=== PATIENT | female | born 1980 | race Caucasian/White ===

== ENCOUNTER 2016-06-30 08:43 | Observation (INO) | payer OTHER ==
[~2016-06-30] VITALS: Ht 167.6 cm; Wt 70.8 kg
[2016-06-30] VITALS (8 sets, daily range): BP systolic 99–125; BP diastolic 58–79
[2016-06-30] MEDS ORDERED: FENTANYL PF 100 MCG/2 ML VIAL. ONE ×2 (08:57→11:21)
[2016-06-30] MEDS ORDERED: ONDANSETRON PF 4 MG/2 ML VIAL. ONE (08:57)
[2016-06-30] MEDS ORDERED: GLYCOPYRROLATE 1 MG/5 ML VIAL. ONE (08:57)
[2016-06-30] MEDS ORDERED: MIDAZOLAM HCL 2 MG/2 ML VIAL. ONE (08:57)
[2016-06-30] MEDS ORDERED: NEOSTIGMINE METHYLSULFATE 5 MG/5 ML SYRINGE. ONE (08:57)
[2016-06-30] MEDS ORDERED: PROPOFOL 20 ML IV ONE (08:57)
[2016-06-30] MEDS ORDERED: DEXAMETHASONE SOD PHOS 20 MG/5 ML VIAL. ONE (08:57)
[2016-06-30] MEDS ORDERED: SEVOFLURANE 61 TO 120 MINUTES. IH ONE (08:57)
[2016-06-30] MEDS ORDERED: KETOROLAC 30 MG/ML SYRINGE FOR OR. INJ ONE (08:58)
[2016-06-30] MEDS ORDERED: ROCURONIUM 50 MG/5 ML VIAL. ONE (08:58)
[2016-06-30] MEDS ORDERED: LIDOCAINE 2% 100 MG/5 ML DISP.SYRIN. ONE (08:58)
[2016-06-30] MEDS ORDERED: DEXT20CA7 PO (09:27)
[2016-06-30] MEDS: IV RINGERS,LACTATED 1000ML 1,000 ML IV SCH ×2 (09:30→12:00)
[2016-06-30] MEDS ORDERED: CEFAZOLIN 1GM IVPB FOR OMNI 50 ML IV ONE (09:33)
[2016-06-30 09:56] LABS: NEG OBC UR NEG; POS OBC UR POS
[2016-06-30 10:01] LABS: BASO # 0.1 x10^3/uL (0.0-0.2); BASO % 1 % (0-3); EOS % 4 % (0-3); HEMATOCRIT 38.6 % (36.0-47.0); LYMPH # 3.2 x10^3/uL (1.0-4.8); LYMPH % 36 % (24-48); MEAN CORPUSCULAR HEMOGLOBIN 32 pg (25-35); MEAN CORPUSCULAR HGB CONC 34 g/dL (31-37); MEAN CORPUSCULAR VOLUME 96 fL (79-100); MONO % 7 % (0-9); NEUT % 53 % (31-73); PLATELET COUNT 360 x10^3/uL (140-400); RED BLOOD COUNT 4.02 x10^6/uL (3.50-5.40); RED CELL DISTRIBUTION WIDTH 12.7 % (11.5-14.5)
[2016-06-30] MEDS ORDERED: METHYLENE BLUE 1% 1 ML VIAL. ONE (10:08)
[2016-06-30] MEDS ORDERED: LIDOCAINE 1%/EPI 1:100,000 20 ML VIAL. ONE (10:08)
[2016-06-30] MEDS ORDERED: ACETAMINOPHEN INTRAVENOUS 100 ML IV ONE (11:09)
--- NOTE | 2016-06-30 11:12 | PDOC ---
BRIEF OPERATIVE NOTE Pre-Op Diagnosis CIS Post-Op Diagnosis Same Procedure Performed [facility] Surgeon Dr. Aparicio Anesthesia Type: General Blood Loss 25 ml Specimens Obtained uterus and cervix Findings enlarged uterus, CIS on cervix, nml fallopian tubes and ovaries natacha. Complications none Additional Remarks ptLARISSA Schwartz Jr, MD Jun 30, 2016 11:11
[2016-06-30] MEDS ORDERED: DIPHENHYDRAMINE 50 MG/ML VIAL IV PRN (11:15)
[2016-06-30] MEDS ORDERED: KETOROLAC TROMETHAMINE 30 MG/ML SYRINGE. IV PRN (11:15)
[2016-06-30] MEDS ORDERED: ONDANSETRON PF 4 MG/2 ML VIAL. IV PRN ×2 (11:15→11:30)
[2016-06-30] MEDS ORDERED: DIPHENHYDRAMINE HCL 25 MG CAPSULE PO PRN (11:15)
[2016-06-30] MEDS ORDERED: DEXTROSE 50% 25 GM / 50ML DISP.SYRIN. IV PRN (11:15)
[2016-06-30] MEDS ORDERED: CALCIUM CARBONATE 500 MG TAB.CHEW PO PRN (11:15)
[2016-06-30] MEDS ORDERED: ZOLPIDEM 5 MG TABLET. PO PRN (11:15)
[2016-06-30] MEDS ORDERED: PROCHLORPERAZINE 10 MG/2 ML VIAL. IV PRN (11:15)
[2016-06-30] MEDS ORDERED: 0.9 % SODIUM CHLORIDE 10 ML DISP.SYRIN. IV PRN (11:15)
[2016-06-30] MEDS ORDERED: IV RINGERS,LACTATED 1000ML 1,000 ML IV SCH (11:25)
[2016-06-30] MEDS ORDERED: LIDOCAINE 1% 1 ML SYRINGE. ID PRN (11:30)
[2016-06-30] MEDS ORDERED: MORPHINE SULFATE 2 MG/ML DISP.SYRIN. IV PRN (11:30)
[2016-06-30] MEDS ORDERED: FENTANYL PF 100 MCG/2 ML VIAL. IV PRN (11:30)
[2016-06-30] MEDS: PROCHLORPERAZINE 10 MG/2 ML VIAL. IV PRN ×2 (11:31→11:57)
[2016-06-30] MEDS: FENTANYL PF 100 MCG/2 ML VIAL. IV PRN ×2 (11:31→11:48)
[2016-06-30] MEDS: HYDROMORPHONE 2 MG/ML VIAL. IV PRN ×2 (11:58→12:18)
[2016-06-30] MEDS: NICOTINE 14MG PATCH. TD PRN (15:05)
[2016-06-30] MEDS: SIMETHICONE 80 MG TAB.CHEW PO PRN (15:23)
[2016-06-30] MEDS: OXYCODONE/APAP 5/325 TABLET. PO PRN ×2 (15:24→21:33)
--- NOTE | 2016-06-30 17:10 | OP ---
DATE OF SURGERY: PREOPERATIVE DIAGNOSIS: Carcinoma in situ. POSTOPERATIVE DIAGNOSES: Carcinoma in situ. PROCEDURE: Transvaginal hysterectomy. SURGEON: Larissa Aparicio MD. ANESTHESIA: GETA. ESTIMATED BLOOD LOSS: 25 mL. COMPLICATIONS: None. FINDINGS: Enlarged uterus, carcinoma in situ of cervix. Normal fallopian tubes and ovaries bilaterally. COMPLICATIONS: None. SUMMARY: A 35-year-old with carcinoma in situ, counseled on definitive treatment in terms of vaginal hysterectomy. The patient was counseled on the risks, benefits and expectations of TVH and voiced a clear understanding to proceed. DESCRIPTION OF PROCEDURE: The patient was taken to surgery suite and placed in dorsal lithotomy position, was prepped with Betadine solution and draped in a sterile fashion. After adequate anesthesia, a weighted speculum and curved Roman were placed vaginally. Elias clamps were placed on the anterior and posterior lip of the cervix. Cervix was injected with 1% lidocaine in circumferential manner. Bovie cautery was utilized to circumscribe the cervix. The vaginal mucosa was then dissected away from the lower uterine segment using a moist Ray-Vipul. The parametrial tissue was clamped bilaterally with curved Zackary clamps, cut and suture ligated with 2-0 Vicryl suture. Posterior cul-de-sac was entered bluntly. The long weighted speculum was then placed. Uterosacral ligaments and cardinal ligaments were clamped bilaterally, cut and suture ligated. The uterus was then retroverted. The uteroovarian pedicles were clamped along with the round ligament, were clamped bilaterally, cut and suture ligated. The uterus and cervix were then removed in their entirety. A modified Doyle's culdoplasty was performed incorporating uterosacral ligaments bilaterally. The remainder of the vaginal cuff was reapproximated using 2-0 Vicryl suture in a [id number] manner. Moist vaginal packing was placed. The patient tolerated procedure well and was taken to recovery room in stable condition. Sponge and needle counts correct x 3. LARISSA APARICIO MD DR: GELA/corinne JOB#: [id number] / [id number]
[2016-06-30] MEDS: GABAPENTIN 300 MG CAPSULE. PO SCH (21:33)
[2016-07-01] MEDS ORDERED: PNEUMOCOCCAL VAX SCREEN BY RX. MC PRN (01:15)
[2016-07-01] MEDS: OXYCODONE/APAP 5/325 TABLET. PO PRN ×3 (03:05→12:45)
[2016-07-01 05:11] LABS: BASO % 0 % (0-3); EOS % 0 % (0-3); HEMATOCRIT 21.8 % (36.0-47.0); HEMOGLOBIN 7.3 g/dL (12.0-15.5); LYMPH # 1.8 x10^3/uL (1.0-4.8); LYMPH % 13 % (24-48); MEAN CORPUSCULAR HEMOGLOBIN 33 pg (25-35); MEAN CORPUSCULAR HGB CONC 34 g/dL (31-37); MEAN CORPUSCULAR VOLUME 97 fL (79-100); MONO % 6 % (0-9); NEUT % 81 % (31-73); PLATELET COUNT 258 x10^3/uL (140-400); RED BLOOD COUNT 2.24 x10^6/uL (3.50-5.40); RED CELL DISTRIBUTION WIDTH 12.3 % (11.5-14.5); WHITE BLOOD COUNT 13.5 x10^3/uL (4.0-11.0)
[2016-07-01 06:00] VITALS: BP 105/63
[2016-07-01] MEDS: SIMETHICONE 80 MG TAB.CHEW PO PRN (08:12)
[2016-07-01] MEDS: GABAPENTIN 300 MG CAPSULE. PO SCH ×2 (08:12→16:00)
[2016-07-01 08:15] VITALS: BP 131/71
[2016-07-01] MEDS ORDERED: PNEUMOC CONJ VACC 23-VALENT 0.5 ML VIAL. VAX IM ONE (09:00)
[2016-07-01] MEDS: NICOTINE 14MG PATCH. TD PRN (12:17)
--- NOTE | 2016-07-01 14:57 | PDOC ---
SURGICAL PROGRESS NOTE Subjective Pt. feeling well. Pain controlled. No complaints. Vital Signs Vital Signs Date Time Temp Pulse Resp B/P Pulse Ox O2 Delivery O2 Flow Rate FiO2 07/01/16 12:45 18 Room Air 07/01/16 08:15 97.9 97 131/71 98 97.9 06/30/16 11:31 10.0 I&O Intake and Output 07/01/16 07:00 Intake Total 1950 ml Output Total 675 ml Balance 1275 ml Intake Oral 800 ml IV Total 1150 ml Output Urine Total 650 ml Estimated Blood Loss 25 ml # Voids 1 PATIENT HAS A CHRISTIANSON: No General: Alert, Oriented X3, Cooperative HEENT: Atraumatic Lungs: Clear to auscultation Heart: Regular rate Abdomen: Normal bowel sounds, Soft, No tenderness Extremities: No clubbing Psych/Mental Status: Mental status NL Labs Laboratory Tests Test 06/30/16 08:50 06/30/16 09:15 07/01/16 04:30 Urine Test Negative (NEG) White Blood Count 9.0x10^3/uL (4.0-11.0) 13.5x10^3/uL (4.0-11.0) Red Blood Count 4.02x10^6/uL (3.50-5.40) 2.24x10^6/uL (3.50-5.40) Hemoglobin 13.0g/dL (12.0-15.5) 7.3g/dL (12.0-15.5) Hematocrit 38.6% (36.0-47.0) 21.8% (36.0-47.0) Mean Corpuscular Volume 96fL (79-100) 97fL (79-100) Mean Corpuscular Hemoglobin 32pg (25-35) 33pg (25-35) Mean Corpuscular Hemoglobin Concent 34g/dL (31-37) 34g/dL (31-37) Red Cell Distribution Width 12.7% (11.5-14.5) 12.3% (11.5-14.5) Platelet Count 360x10^3/uL (140-400) 258x10^3/uL (140-400) Neutrophils (%) (Auto) 53% (31-73) 81% (31-73) Lymphocytes (%) (Auto) 36% (24-48) 13% (24-48) Monocytes (%) (Auto) 7% (0-9) 6% (0-9) Eosinophils (%) (Auto) 4% (0-3) 0% (0-3) Basophils (%) (Auto) 1% (0-3) 0% (0-3) Neutrophils # (Auto) 4.7x10^3uL (1.8-7.7) 10.9x10^3uL (1.8-7.7) Lymphocytes # (Auto) 3.2x10^3/uL (1.0-4.8) 1.8x10^3/uL (1.0-4.8) Monocytes # (Auto) 0.6x10^3/uL (0.0-1.1) 0.8x10^3/uL (0.0-1.1) Eosinophils # (Auto) 0.3x10^3/uL (0.0-0.7) 0.0x10^3/uL (0.0-0.7) Basophils # (Auto) 0.1x10^3/uL (0.0-0.2) 0.0x10^3/uL (0.0-0.2) Laboratory Tests Test 07/01/16 04:30 White Blood Count 13.5x10^3/uL (4.0-11.0) Red Blood Count 2.24x10^6/uL (3.50-5.40) Hemoglobin 7.3g/dL (12.0-15.5) Hematocrit 21.8% (36.0-47.0) Mean Corpuscular Volume 97fL (79-100) Mean Corpuscular Hemoglobin 33pg (25-35) Mean Corpuscular Hemoglobin Concent 34g/dL (31-37) Red Cell Distribution Width 12.3% (11.5-14.5) Platelet Count 258x10^3/uL (140-400) Neutrophils (%) (Auto) 81% (31-73) Lymphocytes (%) (Auto) 13% (24-48) Monocytes (%) (Auto) 6% (0-9) Eosinophils (%) (Auto) 0% (0-3) Basophils (%) (Auto) 0% (0-3) Neutrophils # (Auto) 10.9x10^3uL (1.8-7.7) Lymphocytes # (Auto) 1.8x10^3/uL (1.0-4.8) Monocytes # (Auto) 0.8x10^3/uL (0.0-1.1) Eosinophils # (Auto) 0.0x10^3/uL (0.0-0.7) Basophils # (Auto) 0.0x10^3/uL (0.0-0.2) Problem List Problems Medical Problems: (1) CIS (carcinoma in situ of cervix) Status: Acute Assessment/Plan A: POD#1 s/p TVH P: D/c home. Problems: LARISSA GASCA Jr, MD Jul 01, 2016 14:57
--- NOTE | 2016-07-01 14:58 | DISCH ---
DISCHARGE INSTRUCTIONS Condition on Discharge Condition on Discharge: Stable Activity After Discharge Activity Instructions for Disc: Activity as tolerated Lifting Instructions after Dis: No heavy lifting Driving Instructions after Dis: Do not drive today Diet after Discharge Diet after Discharge: Regular Contacting the [facility] after DC Call your doctor for: Concerns you may have Follow-Up Follow up with: Dr. Aparicio in 2 weeks. LARISSA APARICIO Jr, MD Jul 01, 2016 14:58
[2016-07-01] MEDS ORDERED: IBUP-1060 PO (15:00)
[2016-07-01] MEDS ORDERED: OXYC-323 PO (15:00)
[2016-07-01] MEDS ORDERED: Nicotine TD (15:00)
[2016-07-01] MEDS ORDERED: DOCU-27 PO (15:00)
[2016-07-01 16:18] VITALS: BP 128/56
--- NOTE | 2016-07-04 16:18 | PATHOLOGY ---
PATHOLOGY REPORT * * * * * * * * FINAL DIAGNOSIS: Uterus, total vaginal hysterectomy: - SEVERE DYSPLASIA/CARCINOMA IN SITU, UTERINE CERVIX, FOCAL. - Exocervical margin negative for severe dysplasia/carcinoma in situ. - Chronic cervicitis with focal mature and immature squamous metaplasia. - Endocervical gland tubal metaplasia, focal. - Nabothian cysts, cervix. - Proliferative endometrium. COMMENT: There is a small focus of severe dysplasia/carcinoma in situ of the uterine cervix. The exocervical margin is negative for severe dysplasia/carcinoma in situ. There is no evidence of invasive carcinoma. (JPM:mgmatt; d/t: 07/04/16) REPORT ELECTRONICALLY SIGNED BY: Aldair Cueto M.D. DATE/TIME: 07/04/2016 15:40 * * * * * * * * GROSS PATHOLOGY: The specimen is received in formalin, labeled "Adan Cruz, uterus and cervix". Received is an intact uterus with attached cervix having a total weight of 96 g. The specimen measures 8.2 x 4.8 x 4.5 cm. The serosal surface displays a wrinkled, pale pinktan appearance. The ectocervix measures 4.5 x 4.3 cm. The ectocervical mucosa displays a wrinkled, pale pinktan appearance with no solid masses or lesions identified. The os is round and measures 0.3 cm. The surgical resection margin of the cervix is inked black. The endocervix measures 4.2 cm in length. The endometrial cavity is an inverted triangle and measures 3.5 x 3.0 cm. The endometrium displays a spongy, pale pinktan appearance with a thickness of 0.2 cm. The myometrium measures up to 2.2 cm. Sectioning through the myometrium reveals a pinktan fascicular cut surface with no solid masses or nodules identified. The entire cervix along with pharmacy sales representative sections are submitted as follows: A1A5 12:003:00 cervix, A6A10 3:006:00 cervix, A11-A14 6:009:00 cervix, A15A20 9:0012:00 cervix, [id number] endomyometrium, [id number] endomyometrium (SNA; 07/01/2016) INITIAL CPT CODE(S): 14794 Professional services performed by [facility] at [place] [id number] Technical services performed by [facility] at [address] [place] [address], [address], [place] [address]. SPECIMEN(S) RECEIVED: A.Uterus and cervix CLINICAL HISTORY: Carcinoma in situ of cervix PATIENT: ADAN CRUZ /AGE: 511/07/1980 (Age: 35) PATIENT #: [id number] ALT CASE #: SPECIMEN COLLECTION DATE: 06/30/2016 SPECIMEN RECEIVED DATE: 06/30/2016 [facility] - [address] [place] [address] - PHONE: [phone] * * * END OF REPORT * * *
== END 2016-07-01 18:27 | disposition home or self-care (01) ==
LOC: SURG 08:43 → 3 NORTH 11:25
PROVIDERS: ADMIT Obstetrics & Gynecology; ATTEND Obstetrics & Gynecology
DX: D06.9 Carcinoma in situ of cervix, unspecified (principal); N85.2 Hypertrophy of uterus; Z23 Encounter for immunization
CPT/HCPCS: 36415; 58260; 81025; 85027; 86850; 86900; 86901; 88309; 90471; 90732; 96374; G0378; G0379; J0131; J0690; J0780; J1100; J1170; J1885; J2250; J2405; J2704; J2710; J3010; J3490; J7120; Q9968

== ENCOUNTER 2016-07-06 15:08 | Emergency (ER) | payer OTHER ==
[~2016-07-06] VITALS: Ht 167.6 cm; Wt 65.8 kg
[~2016-07-06 15:08] MED LIST: DEXT20CA7 PO; DOCU-27 PO; IBUP-1060 PO; Nicotine TD; OXYC-323 PO
[2016-07-06] MEDS ORDERED: IV NORMAL SALINE 1000ML BAG 1,000 ML IV ONE (15:30)
[2016-07-06] MEDS ORDERED: FENTANYL PF 100 MCG/2 ML VIAL. IV ONE (15:30)
[2016-07-06] MEDS ORDERED: ONDANSETRON PF 4 MG/2 ML VIAL. IV ONE (15:30)
--- NOTE | 2016-07-06 15:42 | PHYS DOC ---
Past Medical History Past Medical History: Other Additional Past Medical Histor: cervical cancer Past Surgical History: Hysterectomy, Tubal ligation Additional Past Surgical Histo: plastic sx fingers, cyst removal fallopian tube Alcohol Use: Occasionally Drug Use: None Adult General Chief Complaint Chief Complaint: ABDOMINAL PAIN HPI HPI This is a 35-year-old female who is status post 1 week from a total hysterectomy by Dr. Aparicio. She claims significant upper abdominal and lower abdominal pain that has been present ever since the procedure. She did state today that she has been passing more blood than she has had for the last few days. She states Dr. Aparicio has instructed her to come in for evaluation. Patient has been able to have bowel movements using laxatives. For her pain, patient has been taking Motrin 800 with Percocet as needed for pain and has now run out of Percocet. She states this has not helped her symptoms. She states nausea with no vomiting. She denies any chest pain or shortness of breath. She denies any dizziness or lightheadedness. She denies any dysuria symptoms Review of Systems Review of Systems Constitutional: Denies fever or chills [] Eyes: Denies change in visual acuity, redness, or eye pain [] HENT: Denies nasal congestion or sore throat [] Respiratory: Denies cough or shortness of breath [] Cardiovascular: No additional information not addressed in HPI [] GI: Has abdominal pain, has nausea, denies vomiting, denies bloody stools or diarrhea [] : Denies dysuria or hematuria [] Musculoskeletal: Denies back pain or joint pain [] Integument: Denies rash or skin lesions [] Neurologic: Denies headache, focal weakness or sensory changes [] Endocrine: Denies polyuria or polydipsia [] Current Medications Current Medications Current Medications Medications (Trade) Dose Ordered Sig/Geraldo Start Time Stop Time Status Last Admin Dose Admin Fentanyl Citrate (Fentanyl 2ml Vial) 75 mcg 1X ONCE 07/06/16 15:30 07/06/16 15:31 DC 07/06/16 15:36 75 MCG Ondansetron HCl 4 mg 4 mg 1X ONCE 07/06/16 15:30 07/06/16 15:31 DC 07/06/16 15:36 4 MG Sodium Chloride (Iv Sodium Chloride 0.9% 1000ml Bag) 1,000 ml @ 1,000 mls/hr 1X ONCE 07/06/16 15:30 07/06/16 16:29 DC 07/06/16 15:36 1,000 MLS/HR Allergies Allergies Allergies Coded Allergies Type Severity Reaction Last Updated Verified No Known Drug Allergies 06/30/16 No Physical Exam Physical Exam Constitutional: Well developed, well nourished, no acute distress, non-toxic appearance. [] HENT: Normocephalic, atraumatic, bilateral external ears normal, oropharynx moist, no oral exudates, nose normal. [] Eyes: PERRLA, EOMI, conjunctiva normal, no discharge. [] Neck: Normal range of motion, no tenderness, supple, no stridor. [] Cardiovascular:Heart rate regular rhythm, no murmur [] Lungs & Thorax: Bilateral breath sounds clear to auscultation [] Abdomen: Bowel sounds normal, soft, moderate suprapubic tenderness, mild epigastric tenderness to palpation, no masses, no pulsatile masses. Pelvic exam: Pelvic exams reveals a scant amount of vaginal bleeding and no active bleeding noted. [] Skin: Warm, dry, no erythema, no rash. [] Back: No tenderness, no CVA tenderness. [] Extremities: No tenderness, no cyanosis, no clubbing, ROM intact, no edema. [] Neurologic: Alert and oriented X 3, normal motor function, normal sensory function, no focal deficits noted. [] Psychologic: Affect normal, judgement normal, mood normal. [] Current Patient Data Vital Signs Vital Signs Date Time Temp Pulse Resp B/P Pulse Ox O2 Delivery O2 Flow Rate FiO2 07/06/16 15:36 Room Air 07/06/16 15:19 98.3 99 17 138/65 100 98.3 Lab Values Laboratory Tests Test 07/06/16 15:35 07/06/16 16:40 White Blood Count 9.5x10^3/uL (4.0-11.0) Red Blood Count 2.77x10^6/uL (3.50-5.40) L Hemoglobin 9.4g/dL (12.0-15.5) L Hematocrit 27.3% (36.0-47.0) L Mean Corpuscular Volume 98fL (79-100) Mean Corpuscular Hemoglobin 34pg (25-35) Mean Corpuscular Hemoglobin Concent 35g/dL (31-37) Red Cell Distribution Width 13.3% (11.5-14.5) Platelet Count 356x10^3/uL (140-400) Neutrophils (%) (Auto) 74% (31-73) H Lymphocytes (%) (Auto) 16% (24-48) L Monocytes (%) (Auto) 6% (0-9) Eosinophils (%) (Auto) 4% (0-3) H Basophils (%) (Auto) 1% (0-3) Neutrophils # (Auto) 7.0x10^3uL (1.8-7.7) Lymphocytes # (Auto) 1.5x10^3/uL (1.0-4.8) Monocytes # (Auto) 0.6x10^3/uL (0.0-1.1) Eosinophils # (Auto) 0.4x10^3/uL (0.0-0.7) Basophils # (Auto) 0.0x10^3/uL (0.0-0.2) Sodium Level 135mmol/L (136-145) L Potassium Level 4.6mmol/L (3.5-5.1) Chloride Level 99mmol/L (98-107) Carbon Dioxide Level 25mmol/L (21-32) Anion Gap 11 (6-14) Blood Urea Nitrogen 16mg/dL (7-20) Creatinine 1.1mg/dL (0.6-1.0) H Estimated GFR (Cockcroft-Gault) 56.5 Glucose Level 171mg/dL (70-99) H Calcium Level 9.0mg/dL (8.5-10.1) Urine Test Negative (NEG) Laboratory Tests 07/06/16 15:35 Laboratory Tests 07/06/16 15:35 EKG EKG [] Course & Med Decision Making Course & Med Decision Making Pertinent Labs and Imaging studies reviewed. (See chart for details) 35-year-old female who is status post 1 week from a hysterectomy will have lab work and a pelvic exam to quantify her bleeding. I will then touch base with the on-call patient's librarian to discuss a treatment plan. Her laboratory workup was unrevealing besides a hemoglobin of 9.4. Her pain controlled easily with IV pain meds. Her pelvic exam revealed no active bleeding and a scan blood with sutures in place. Placed a call to the patient's librarian, Dr. Aparicio, who agreed that the patient will be safe to be followed up with a extended course of Percocet and to keep her follow-up appointment as scheduled. She'll be discharged without incident. Dragon Disclaimer Dragon Disclaimer This electronic medical record was generated, in whole or in part, using a voice recognition dictation system. Departure Departure Impression: Primary Impression: Abdominal pain Disposition: HOME, SELF-CARE Condition: STABLE Referrals: ALYSSA CRUM MD (PCP) LARISSA APARICIO Jr, MD Patient Instructions: Abdominal Pain, Child Additional Instructions: Please follow up with Dr. Aparicio as scheduled for your abdominal pain. Take your pain medication as prescribed. Return to the ER if you develop any worsening of your symptoms. Scripts Oxycodone/Apap 5-325 (Percocet 5-325 Mg Tablet)1 Each Tablet1 Tab PO PRN Q6HRS PRN PAIN #14 TAB Ref 0 Prov:KEISHA DAVIS DO 07/06/16 KEISHA DAVIS DO Jul 06, 2016 15:41
[2016-07-06 15:52] LABS: BASO % 1 % (0-3); EOS % 4 % (0-3); HEMATOCRIT 27.3 % (36.0-47.0); HEMOGLOBIN 9.4 g/dL (12.0-15.5); LYMPH # 1.5 x10^3/uL (1.0-4.8); LYMPH % 16 % (24-48); MEAN CORPUSCULAR HEMOGLOBIN 34 pg (25-35); MEAN CORPUSCULAR HGB CONC 35 g/dL (31-37); MEAN CORPUSCULAR VOLUME 98 fL (79-100); MONO % 6 % (0-9); NEUT % 74 % (31-73); PLATELET COUNT 356 x10^3/uL (140-400); RED BLOOD COUNT 2.77 x10^6/uL (3.50-5.40); RED CELL DISTRIBUTION WIDTH 13.3 % (11.5-14.5); WHITE BLOOD COUNT 9.5 x10^3/uL (4.0-11.0)
[2016-07-06 16:10] LABS: CREATININE 1.1 mg/dL (0.6-1.0); GFR 56.5; POTASSIUM 4.6 mmol/L (3.5-5.1)
[2016-07-06 16:49] VITALS: BP 123/59
[2016-07-06 16:54] LABS: BILIRUBIN,URINE NEGATIVE (NEG); GLUCOSE,URINE NEGATIVE (NEG); NITRITE,URINE NEGATIVE (NEG); PROTEIN,URINE NEGATIVE (NEG-TRACE); UROBILINOGEN,URINE 0.2 mg/dL (0.2 mg/dL)
[2016-07-06 16:59] LABS: NEG OBC UR NEG; POS OBC UR POS
[2016-07-06] MEDS ORDERED: OXYC-323 PO (17:05)
[2016-07-06 17:06] LABS: BACTERIA,URINE 0 /HPF (0-FEW); SQUAMOUS EPITHELIAL CELL,UR OCC /LPF; WBC,URINE OCC /HPF (0-4)
== END 2016-07-06 17:20 | disposition home or self-care (01) ==
LOC: ER 15:08
DX: R10.30 Lower abdominal pain, unspecified (principal); R11.0 Nausea; Z90.710 Acquired absence of both cervix and uterus; Z98.51 Tubal ligation status
CPT/HCPCS: 36415; 80048; 81001; 81025; 85027; 96361; 96374; 96375; 99284; J2405; J3010; J7030